=== PATIENT | male | born 1955 | race Hispanic/Latino ===

== ENCOUNTER 2016-10-03 09:12 | Outpatient (CLI) | payer BC ==
--- NOTE | 2016-10-05 08:49 | Magnetic Resonance Report ---
MR LOWER EXTREMITY JOINT RIGHT WITHOUT CONTRAST HISTORY: Right knee pain, tear of the meniscus of knee. TECHNIQUE: Multisequence, multiplanar MRI without IV contrast. Fat suppression technique was utilized. COMPARISON: None at this facility. FINDINGS: A moderate to large joint effusion extends to the suprapatellar bursa. A popliteal cyst containing minimal septation measures 4.0 x 1.5 x 2.2 cm. The lateral meniscus is normal. There is a focal defect in the posterior horn of the medial meniscus near its posterior insertion site. This is consistent with a focal tear which communicates with the tibial and femoral articular surfaces. There is a small 5 mm fragment in the posterior intercondylar notch between the ACL and PCL which demonstrates signal characteristics similar to the menisci. This probably represents a free intra-articular meniscal fragment. The bone marrow signal is within normal limits. No evidence for fracture, periostitis or bone lesion. The intra-articular cartilage is within normal limits. The ACL, PCL, MCL, LCL complex and extensor complex are intact. Normal popliteus. There is susceptibility artifact in the distal right thigh along the superior margin of the images. There may be a soft tissue metallic fragment in the distal, medial thigh. The patient was asymptomatic during the MRI examination. Impression: Complex focal tear in the posterior horn of the medial meniscus near its posterior insertion site. There also appears to be a free meniscal fragment within the intercondylar notch. Please see above. Joint effusion and popliteal cyst.
== END 2016-10-03 09:13 | disposition home or self-care (01) ==
LOC: MRI 09:12
PROVIDERS: ATTEND Orthopaedic Surgery
DX: S83.231A Complex tear of medial meniscus, current injury, right knee, initial encounter (principal); X58.XXXA Exposure to other specified factors, initial encounter; Y93.89 Activity, other specified; Y92.89 Other specified places as the place of occurrence of the external cause; Y99.8 Other external cause status; M71.21 Synovial cyst of popliteal space [Baker], right knee
CPT/HCPCS: 73721

== ENCOUNTER 2018-10-21 15:06 | Emergency (ER) | payer BC ==
--- NOTE | 2018-10-21 16:00 | Emergency Department Report ---
Blank Doc - Documentation Documentation: This is a 63-year-old male that was sent by PCP for DKA. This initial assessment/diagnostic orders/clinical plan/treatment(s) is/are subject to change based on patient's health status, clinical progression and re- assessment by fellow clinical providers in the ED. Further treatment and workup at subsequent clinical providers discretion. Patient/guardians urged not to elope from the ED as their condition may be serious if not clinically assessed and managed. Initial orders include: 1- Patient sent to MAIN ED for further evaluation and treatment 2- labs 3- UA
[2018-10-21 16:19] LABS: Basophils % (Auto) 0.7 % (0.0-1.8); Eosinophils # (Auto) 0.1 K/mm3 (0.0-0.4); Eosinophils % (Auto) 2.5 % (0.0-4.3); Hematocrit 44.8 % (35.5-45.6); Hemoglobin 15.3 gm/dl (11.8-15.2); Lymphocytes # (Auto) 1.5 K/mm3 (1.2-5.4); Lymphocytes % (Auto) 31.5 % (13.4-35.0); Mean Corpuscular HGB Conc 34 % (32-34); Mean Corpuscular Volume 91 fl (84-94); Monocytes # (Auto) 0.3 K/mm3 (0.0-0.8); Monocytes % (Auto) 7.1 % (0.0-7.3); Platelet Count 140 K/mm3 (140-440); Red Blood Count 4.92 M/mm3 (3.65-5.03); Red Cell Distribution Width 13.4 % (13.2-15.2)
[2018-10-21 16:25] LABS: Bilirubin,Urine NEG (Negative); Blood,Urine NEG (Negative); Color,Urine Yellow (Yellow); Mucus,Urine FEW /HPF; Protein,Urine <15 mg/dL mg/dL (Negative); Urobilinogen,Urine < 2.0 mg/dL (<2.0)
--- NOTE | 2018-10-21 16:29 | Emergency Department Report ---
HPI - General Chief Complaint: Hyperglycemia Time Seen by Provider: 10/21/18 15:57 - HPI HPI: 63-year-old male presents to the emergency department, sent in by his primary care provider, with concern for diabetic ketoacidosis. The patient went to see his primary care provider, who is in [facility], on Sunday for medication refill of his metformin and hypertension medications. He had some blood work drawn at that time and was called today and told that he had elevated blood sugar of about 290 and some ketones in his urine, and therefore there was concern for DKA. The patient has been having bilateral lower rib pain, over the "floating ribs" for about 1 week. He also has been having acute on chronic bilateral lower extremity muscle spasms that are very intense. Overall this has been going on for the past few years. Patient takes metformin 1000 mg twice daily. No recent travel or sick contacts at home. ED Past Medical Hx - Past Medical History Previous Medical History?: Yes Hx Hypertension: Yes Hx Diabetes: Yes - Surgical History Past Surgical History?: Yes Additional Surgical History: Penile Implant - Social History Smoking Status: Never Smoker Substance Use Type: None ED Review of Systems ROS: Stated complaint: RETOACIDOCIS Other details as noted in HPI Comment: All other systems reviewed and negative Constitutional: denies: chills, fever Eyes: denies: eye pain, vision change ENT: denies: ear pain, throat pain Respiratory: denies: cough, shortness of breath Cardiovascular: denies: palpitations, edema Gastrointestinal: denies: abdominal pain, vomiting Genitourinary: denies: dysuria, frequency Musculoskeletal: myalgia (muscle spasms). denies: back pain, joint swelling Skin: denies: rash, lesions Neurological: denies: headache, weakness Physical Exam - Physical Exam Vital Signs: Vital Signs 10/21/18 15:54 Temperature 97.9 F Pulse Rate 72 Respiratory 18 Rate Blood Pressure 158/83 O2 Sat by Pulse 97 Oximetry Physical Exam: GENERAL: The patient is well-developed well-nourished. HENT: Normocephalic. Atraumatic. Patient has moist mucous membranes. EYES: Extraocular motions are intact. NECK: Supple. Trachea is midline. CHEST/LUNGS: Clear to auscultation. There is no respiratory distress noted. HEART/CARDIOVASCULAR: Regular. There is no tachycardia. There is no murmur. ABDOMEN: Abdomen is soft, nontender. Patient has normal bowel sounds. There is no abdominal distention. SKIN: Skin is warm and dry. NEURO: The patient is awake, alert, and oriented. The patient is cooperative. The patient has no focal neurologic deficits. The patient has normal speech. MUSCULOSKELETAL: There is no tenderness or deformity. There is no limitation range of motion. There is no evidence of acute injury. There is reproducible bilateral lower rib pain, about ribs 11 and 12. ED Course Vital Signs 10/21/18 15:54 Temperature 97.9 F Pulse Rate 72 Respiratory 18 Rate Blood Pressure 158/83 O2 Sat by Pulse 97 Oximetry ED Medical Decision Making - Lab Data Result diagrams: 10/21/18 16:02 10/21/18 16:02 - Medical Decision Making This patient was sent in by his primary care provider for concern for diabetic ketoacidosis as he had a blood sugar in the office of about 290 and some trace ketones in the urinalysis. Here today, the patient does not appear to be in diabetic ketoacidosis. He does have a blood sugar of about 270 but there is no elevation in his anion gap and there is no venous acidosis, nor any ketones in the urine. He was given a liter of IV fluid and 4 units of subcutaneous insulin. Upon reevaluation, his blood sugar has gone down to about 140 on an Accu-Chek. Otherwise, his labs do show some mild hyperkalemia. His vital signs and stable throughout his ED course. The patient appears safe for discharge home. He will follow up with primary care and return to the emergency Department with any worsening of his symptoms or any acute distress. - Differential Diagnosis DKA, HHNK, Hyperglycemia, Electrolyte abnormalities Critical Care Time: No Critical care attestation.: If time is entered above; I have spent that time in minutes in the direct care of this critically ill patient, excluding procedure time. ED Disposition Clinical Impression: Hyperglycemia, Hyperkalemia Disposition: -01 TO HOME OR SELFCARE Is pt being admited?: No Condition: Stable Instructions: Hyperkalemia (ED), Diabetic Hyperglycemia (ED) Additional Instructions: Please follow up with a primary care physician in the next few days. Return to the emergency department with any worsening of your symptoms or any acute distress. Start taking your metformin tomorrow morning. Try and stay away from foods are high in sugar, starches and carbohydrates. Try and keep a blood sugar log if possible. Referrals: PRIMARY CARE, [Primary Care Provider] - 2-3 Days Time of Disposition: 18:25
[2018-10-21 17:08] LABS: Alanine Aminotransferase 16 units/L (7-56); Albumin 4.1 g/dL (3.9-5); BUN/Creatinine Ratio 21; Blood Urea Nitrogen 19 mg/dL (9-20); Calcium 8.7 mg/dL (8.4-10.2); Hemolysis Index 11
[2018-10-21] MEDS ORDERED: NACL 0.9% 1000 ML 1,000 ML IV ONE (17:10)
[2018-10-21] MEDS ORDERED: HumuLIN R SUB-Q ONE (17:10)
[2018-10-21 18:17] VITALS: BP 136/79
== END 2018-10-21 18:40 | disposition home or self-care (01) ==
LOC: ED 15:06
DX: E11.65 Type 2 diabetes mellitus with hyperglycemia (principal); E87.5 Hyperkalemia; E11.10 Type 2 diabetes mellitus with ketoacidosis without coma; I10 Essential (primary) hypertension; M79.10 Myalgia, unspecified site; Z88.5 Allergy status to narcotic agent; Z88.0 Allergy status to penicillin; Z79.84 Long term (current) use of oral hypoglycemic drugs
CPT/HCPCS: 36415; 80053; 81001; 82805; 82962; 85025; 96360; 96372; 99283; J7030; J1815

== ENCOUNTER 2019-02-04 10:08 | Outpatient (CLI) | payer BC ==
--- NOTE | 2019-02-04 12:33 | Magnetic Resonance Report ---
MRI CERVICAL SPINE WITHOUT CONTRAST INDICATION / CLINICAL INFORMATION: S13.9XXA)Sprain of ligaments of cervical spine, initial encounter. Neck pain TECHNIQUE: Multisequence, multiplanar images of the cervical spine were obtained. COMPARISON: None available. FINDINGS: CRANIOCERVICAL JUNCTION:No significant abnormality. ALIGNMENT: No significant abnormality. VERTEBRAE:Normal marrow signal and vertebral body height for age. DISCS: Mild diffuse disc desiccation is evident without loss of height. VISUALIZED SPINAL CORD: No significant abnormality. [id number] ANALYSIS: C2-3: No significant disc abnormality, spinal canal stenosis, or neural foraminal stenosis. C3-4: A small midline disc protrusion is identified measuring 2 mm AP and 5 mm transverse. No mass ef fect on the cord. No central canal stenosis or neural foraminal stenosis. Mild facet arthropathy. C4-5: No significant disc abnormality, spinal canal stenosis, or neural foraminal stenosis. Mild face t arthropathy. C5-6: No significant disc abnormality, spinal canal stenosis, or neural foraminal stenosis. Mild face t arthropathy. C6-7: No significant disc abnormality, spinal canal stenosis, or neural foraminal stenosis. Mild face t arthropathy. C7-T1: No significant disc abnormality, spinal canal stenosis, or neural foraminal stenosis. PARASPINAL SOFT TISSUES: No significant abnormality. ADDITIONAL FINDINGS: None. IMPRESSION: Mild diffuse disc desiccation is evident. A small midline disc protrusion is identified at C3-4 witho ut mass effect. No evidence for central canal narrowing or neural foraminal narrowing. Mild multilevel facet arthropathy No evidence for acute injury. Signer Name: Nagi Henry Jr, MD Signed: 02/04/2019 12:28 PM Workstation Name: [id number]
== END 2019-02-04 10:09 | disposition home or self-care (01) ==
LOC: MRI 10:08
DX: S13.9XXA Sprain of joints and ligaments of unspecified parts of neck, initial encounter (principal); M12.9 Arthropathy, unspecified; X58.XXXA Exposure to other specified factors, initial encounter; Y93.89 Activity, other specified; Y92.89 Other specified places as the place of occurrence of the external cause; Y99.8 Other external cause status
CPT/HCPCS: 72141